=== PATIENT | male | born 1955 | race Caucasian/White ===

== ENCOUNTER 2020-10-22 08:39 | Outpatient (CLI) | payer MEDICARE, MEDICAID, SELFPAY | END 2020-10-22 08:40 | disposition home or self-care (01) | LOC: CHSCOVIDVC 08:40 | PROVIDERS: PCP Family Medicine | DX: Z23 Encounter for immunization (principal) | CPT/HCPCS: 0011A; 91301 ==

== ENCOUNTER 2020-11-19 08:36 | Outpatient (CLI) | payer MEDICARE, MEDICAID, SELFPAY | END 2020-11-19 08:37 | disposition home or self-care (01) | LOC: CHSCOVIDVC 08:36 | PROVIDERS: PCP Family Medicine | DX: Z23 Encounter for immunization (principal) | CPT/HCPCS: 0012A; 91301 ==